=== PATIENT | male | born 2000 | race Caucasian/White ===

== ENCOUNTER 2021-09-07 21:21 | Emergency (ER) | payer MEDICARE, SELFPAY ==
[2021-09-07 23:05] VITALS: BP 131/57; PULSE 74; RESP 18; TEMP 36.9; O2SAT 98; BMI 26.6
[2021-09-07 23:28] LABS: IDNOW Serial# 08D9AD1C; Strep A Nucleic Acid Positive (Negative)
--- NOTE | 2021-09-08 00:14 | ED.URI ---
HPI - URI/Sore Throat General Chief Complaint: Upper Respiratory Symptoms Stated Complaint: coughing up blood Time Seen by Provider: 09/07/21 23:47 Source: patient and family Mode of arrival: ambulatory History of Present Illness HPI Narrative: 20-year-old male without significant past medical history and denies any family or personal history of bleeding disorders presents with sore throat and ?coughing up blood all morning?. This has not happened recently, patient also complains of ear pain and pressure as well as a sore throat and chills. Related Data Previous Rx's Medication Instructions Recorded amoxicillin 875 mg-potassium 1 tab PO Q12H 10 Days #20 tab 09/08/21 clavulanate 125 mg tablet Allergies Allergy/AdvReac Type Severity Reaction Status Date / Time No Known Allergies Allergy Unverified 01/13/20 16:53 Review of Systems Review of Systems: Pertinent positives and negatives as stated in HPI 10 point review of systems is otherwise negative. PMFSH Past Medical History Source: nursing notes reviewed Social History Social History Advance Directives: No Advance Directives Information Provided: No Physical Exam Vital Signs: Vital Signs: Last Vital Signs Temp 98.5 F 09/07/21 23:05 Pulse 74 09/07/21 23:05 Resp 18 09/07/21 23:05 BP 131/57 L 09/07/21 23:05 Pulse Ox 98 09/07/21 23:05 BMI result Body Mass Index 26.6 VITAL SIGNS: Reviewed. GENERAL: Well developed, well nourished, in no acute distress. HEAD: Normocephalic/atraumatic EYES: PERRLA, EOMI EARS: Ext canals without abnormality, TMs non-bulging and non-erythematous NOSE: Nares patent bilateral OROPHARYNX: no oral lesions noted, posterior pharynx clear and non-erythematous with noted tonsillar enlargement/erythema/exudates, no evidence of stigmata of bleeding NECK: Supple, + adenopathy LUNGS: Normal breath sounds. No adventitious sounds or accessory muscle use. SpO2<98> CARDIOVASCULAR: Regular rate and rhythm without noted murmurs ABDOMEN: Soft, non-tender, non-distended with bowel sounds. NEUROLOGIC: Alert and oriented x 4. Strength and sensation to light touch were grossly intact x 4. Course Course Course Narrative: 20-year-old male with history and clinical presentation consistent with strep pharyngitis after review of investigations. Patient was provided with combination analgesics as well as initial antibiotics. It was explained to both he and his parents who are at bedside that the noted streaking within the saliva when he was coughing was likely secondary to irritation. He has no objective findings of anemia and as mentioned in the clinical exam no stigmata of bleeding. MDM - URI/Sore Throat Lab Data Labs: Lab Results 09/07/21 Range/Units 23:14 S. pyogenes GrpA VAMSI Positive A (Negative) Discharge Plan Discharge Clinical Impression: Acute streptococcal pharyngitis Patient Disposition: Home, Self-Care Instructions: Strep Throat (ED) Additional Instructions: 1. Recommend [id number] Tylenol/ibuprofen as well as Cepacol or Sucrets for pain relief. 2. Complete the entire course of antibiotics. 3. Follow-up with your primary care provider for re-evaluation further outpatient management. Return to the ER for worsening symptoms. Prescriptions: New amoxicillin-pot clavulanate 875-125 mg tablet 1 tab PO Q12H 10 Days Qty: 20 0RF Referrals: Suraj Falcon MD [Primary Care Provider] -
[2021-09-08 00:42] VITALS: BP 130/72; PULSE 86; RESP 14; O2SAT 96
[2021-09-08] MEDS: Acetaminophen 325 MG TABLET 975 MG PO (01:14)
[2021-09-08] MEDS: Ibuprofen 400 MG TABLET PO (01:15)
[2021-09-08] MEDS: Amoxicillin/Potassium Clav 875 MG TABLET PO (01:15)
== END 2021-09-08 01:16 | disposition home or self-care (01) ==
PROVIDERS: Emergency Provider Student in an Organized Health Care Education/Training Program; PCP Internal Medicine
DX: J02.0 Streptococcal pharyngitis (principal)
CPT/HCPCS: 36415; 87651; 99282; 99283